=== PATIENT | male | born 2000 | race Caucasian/White ===

== ENCOUNTER 2023-04-03 03:07 | Emergency (ER) | payer OTHER ==
[~2023-04-03] VITALS: Ht 185.4 cm; Wt 90.4 kg
[2023-04-03] MEDS ORDERED: BACITRACIN OINTMENT 30GM TUBE TOP STA (08:25)
[2023-04-03] MEDS ORDERED: LIDOCAINE 4% CREAM 5GM (LMX4) TOP ONE (08:25)
[2023-04-03 09:31] VITALS: BP 132/65; TEMP 98.7; O2SAT 100
== END 2023-04-03 09:52 | disposition home or self-care (01) ==
LOC: M ED 03:07
DX: S99.912A Unspecified injury of left ankle, initial encounter (principal); S61.202A Unspecified open wound of right middle finger without damage to nail, initial encounter; S01.01XA Laceration without foreign body of scalp, initial encounter; S60.921A Unspecified superficial injury of right hand, initial encounter; W19.XXXA Unspecified fall, initial encounter; F17.200 Nicotine dependence, unspecified, uncomplicated; F10.10 Alcohol abuse, uncomplicated; Y92.410 Unspecified street and highway as the place of occurrence of the external cause

== ENCOUNTER → 2023-06-17 | Outpatient (CLI) | payer OTHER | LOC: M PLAIMG 06:45 | PROVIDERS: ATTEND Physician Assistant | DX: S29.011A Strain of muscle and tendon of front wall of thorax, initial encounter (principal); M25.512 Pain in left shoulder ==

== ENCOUNTER 2024-05-07 10:58 | Emergency (ER) | payer BC, OTHER ==
[~2024-05-07] VITALS: Ht 185.4 cm; Wt 100.2 kg
[2024-05-07] MEDS ORDERED: CEPH500C PO (14:16)
[2024-05-07 14:22] VITALS: BP 182/92; TEMP 97.9; O2SAT 98
== END 2024-05-07 14:22 | disposition home or self-care (01) ==
LOC: M ED 10:58
DX: L03.115 Cellulitis of right lower limb (principal); Z79.2 Long term (current) use of antibiotics